=== PATIENT | male | born 1975 | race Caucasian/White ===

== ENCOUNTER 2021-05-26 18:00 | Emergency (ER) | payer OTHER ==
[~2021-05-26] VITALS: Ht 182.9 cm; Wt 99.8 kg
[2021-05-26 18:08] VITALS: BP 128/83
[2021-05-26] MEDS ORDERED: ASA81BEC PO (18:10)
[2021-05-26] MEDS ORDERED: MOBIC7.5 MG PO (19:01)
--- NOTE | 2021-05-27 10:12 | EKG ---
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
== END 2021-05-26 19:16 | disposition home or self-care (01) ==
LOC: M.ERS 18:00
DX: M25.512 Pain in left shoulder (principal); Z79.899 Other long term (current) drug therapy